=== PATIENT | female | born 2000 | race Caucasian/White ===

== ENCOUNTER 2019-02-14 19:30 | Emergency (ER) | payer OTHER ==
[~2019-02-14] VITALS: Ht 162.6 cm; Wt 81.6 kg
[2019-02-14 19:47] VITALS: BP 148/86
--- NOTE | 2019-02-14 19:50 | NUR ---
PT AMBULATED TO LOBBY WITH VSS.
--- NOTE | 2019-02-14 20:31 | NUR ---
PT AMBULATED TO ER BED 9
--- NOTE | 2019-02-14 20:48 | NUR ---
DR. ROBISON BEDSIDE EVALUATING PT
--- NOTE | 2019-02-14 21:03 | NUR ---
Patient discharged with v/s stable. Written and verbal after care instructions given and explained. Patient alert, oriented and verbalized understanding of instructions. Ambulatory with steady gait. All questions addressed prior to discharge. ID band removed. Patient advised to follow up with PMD. Rx of CIPRO OTIC [employer]UTION given. Patient educated on indication of medication including possible reaction and side effects. Opportunity to ask questions provided and answered.
[2019-02-14 21:04] VITALS: BP 148/86
== END 2019-02-14 21:03 | disposition home or self-care (01) ==
LOC: MED 19:30
DX: H60.92 Unspecified otitis externa, left ear (principal)
CPT/HCPCS: 99283